=== PATIENT | female | born 1995 | race Caucasian/White ===

== ENCOUNTER 2020-10-05 17:45 | Emergency (ER) | payer SELFPAY ==
[~2020-10-05] VITALS: Ht 172.7 cm; Wt 71.8 kg
[2020-10-05] MEDS ORDERED: diphenhydrAMINE 50 mg/ml inj IV ONE (18:45)
[2020-10-05] MEDS ORDERED: metoclopramide 5 mg/ml inj IV ONE (18:45)
[2020-10-05] MEDS ORDERED: normal saline 1000ML IV soln IVB ONE ×3 (18:45→20:10)
[2020-10-05] MEDS ORDERED: ketorolac trometh. 30mg/ml inj. IV ONE (18:55)
[2020-10-05 19:05] LABS: URINE HCG NEGATIVE (NEG)
[2020-10-05 19:20] LABS: COLOR,URINE YELLOW (Yellow); GLUCOSE, URINE NEGATIVE (Neg); KETONES,URINE >=80 mg/dl (Neg); LEUKOCYTE ESTERASE ,URINE NEGATIVE (Neg); NITRITES, URINE NEGATIVE (Neg); OCCULT BLOOD,URINE NEGATIVE (Neg); PROTEIN,URINE TRACE mg/dl (Neg); UROBILINOGEN,URINE 0.2 E.U/dL (0.2-1.0)
[2020-10-05 19:22] LABS: HEMOGLOBIN 13.3 g/dl (12.0-16.0)
[2020-10-05 19:23] LABS: BASOPHILS % (AUTO) 0.2 % (0-1); EOSINOPHILS % (AUTO) 0 % (0-6); HEMATOCRIT 39.5 % (35.0-45.0); LYMPHOCYTES # (AUTO) 0.8 X10'3 (1.1-4.8); LYMPHOCYTES % (AUTO) 5.8 % (21-51); MEAN CORPUSCULAR HEMOGLOBIN 30.5 PG (27.0-31.0); MEAN CORPUSCULAR HGB CONC 33.8 g/dL (33.0-36.5); MEAN CORPUSCULAR VOLUME 90.2 FL (78-98); MEAN PLATELET VOLUME 8.2 FL (7.4-10.4); MONOCYTES # (AUTO) 0.4 X10'3 (0-0.9); NEUTROPHILS # (AUTO) 13.1 X10'3 (1.8-7.7); PLATELET COUNT 272 X10'3 (140-440); RED BLOOD COUNT 4.38 X10'6 (4.20-5.60); RED CELL DISTRIBUTION WIDTH 13.3 % (11.5-14.5); WHITE BLOOD COUNT 14.4 X10'3 (4.5-11.0)
[2020-10-05 19:26] LABS: UA COLLECTION TYPE VOIDED
[2020-10-05 19:27] LABS: CLARITY,URINE SLIGHTLY CLOUDY (Clear)
[2020-10-05 19:28] LABS: BACTERIA,URINE FEW /HPF (Neg); MUCUS STRANDS MANY /LPF (Neg); RBC,URINE NONE SEEN /HPF (0-2); SQUAMOUS EPITHELIAL CELL,UR FEW /LPF (FEW); WBC,URINE 0-4 /HPF (0-4)
[2020-10-05 19:35] LABS: ALANINE AMINOTRANSFERASE 19 U/L (12-78); ALBUMIN 4.3 G/DL (3.4-5.0); ALBUMIN/GLOBULIN RATIO 1.2 (1.1-1.5); ALKALINE PHOSPHATASE 64 IU/L (46-116); ANION GAP 16 (8-16); ASPARTATE AMINO TRANSFERASE 9 U/L (10-37); BILIRUBIN,TOTAL 1.2 MG/DL (0.1-1.0); BLOOD UREA NITROGEN 11 MG/DL (7-18); BUN/CREATININE RATIO 12.2 (6.6-38.0); CALCIUM 9.3 MG/DL (8.5-10.1); CHLORIDE 103 MMOL/L (99-107); GLUCOSE 112 MG/DL (70-104); LIPASE 53 U/L (73-393); POTASSIUM 3.5 MMOL/L (3.5-5.1); SODIUM 138 MMOL/L (135-145); TOTAL CARBON DIOXIDE 18.7 MMOL/L (24-32); eGFR 78 ML/MIN
[2020-10-05] MEDS ORDERED: ONDA4TAB12 PO (21:00)
[2020-10-05] MEDS ORDERED: PROM25SU9 RC (21:00)
--- NOTE | 2020-10-05 21:05 | NUR ---
DR BECKER TALKING WITH PT AND MOTHER ABOUT PLAN OF CARE AND DC INSRUCTIONS AND LABS.
[2020-10-05] MEDS ORDERED: ondansetron/PF 4mg/2ml inj IV ONE (21:20)
[2020-10-05 21:40] VITALS: BP 118/71
[2020-10-06] MEDS ORDERED: POTA20TA19 PO (19:16)
== END 2020-10-05 21:57 | disposition home or self-care (01) ==
LOC: EDSEX 17:47 → ER 17:47
DX: R11.2 Nausea with vomiting, unspecified (principal); R07.89 Other chest pain; R06.02 Shortness of breath; F12.90 Cannabis use, unspecified, uncomplicated; Z88.1 Allergy status to other antibiotic agents; Z79.899 Other long term (current) drug therapy
CPT/HCPCS: 36415; 71045; 80053; 81001; 81025; 83690; 85025; 93005; 96374; 96375; 99285; J1200; J1885; J2405; J2765; J7030

== ENCOUNTER 2020-10-06 13:41 | Emergency (ER) | payer SELFPAY ==
[~2020-10-06] VITALS: Ht 172.7 cm; Wt 73.3 kg
[~2020-10-06 13:41] MED LIST: ONDA4TAB12 PO; PROM25SU9 RC
--- NOTE | 2020-10-06 16:19 | NUR ---
PT TO ROOM, ASSUMED CARE
[2020-10-06] MEDS ORDERED: LIDOcaine Viscous 15ml cup MM ONE (17:05)
[2020-10-06] MEDS ORDERED: ondansetron/PF 4mg/2ml inj IV ONE (17:05)
[2020-10-06] MEDS ORDERED: normal saline 1000ML IV soln IVB ONE ×2 (17:05→19:15)
[2020-10-06] MEDS ORDERED: haloperidol lactate 5mg/ml inj IM ONE (17:05)
[2020-10-06] MEDS ORDERED: mag hydrox/Alum hydrox/simeth 30ml oral suspension PO ONE (17:05)
[2020-10-06] MEDS ORDERED: diphenhydrAMINE 50 mg/ml inj IV ONE (17:05)
[2020-10-06] MEDS ORDERED: pantoprazole 40 MG vial IV ONE (17:05)
[2020-10-06 17:44] LABS: BASOPHILS % (AUTO) 0.3 % (0-1); EOSINOPHILS % (AUTO) 0 % (0-6); HEMATOCRIT 38.5 % (35.0-45.0); HEMOGLOBIN 13.3 g/dl (12.0-16.0); LYMPHOCYTES # (AUTO) 1.1 X10'3 (1.1-4.8); LYMPHOCYTES % (AUTO) 8.5 % (21-51); MEAN CORPUSCULAR HEMOGLOBIN 31.5 PG (27.0-31.0); MEAN CORPUSCULAR HGB CONC 34.5 g/dL (33.0-36.5); MEAN CORPUSCULAR VOLUME 91.2 FL (78-98); MEAN PLATELET VOLUME 9.4 FL (7.4-10.4); MONOCYTES # (AUTO) 0.4 X10'3 (0-0.9); MONOCYTES % (AUTO) 2.8 % (2-12); NEUTROPHILS # (AUTO) 11.1 X10'3 (1.8-7.7); NEUTROPHILS % (AUTO) 88.4 % (42-75); PLATELET COUNT 218 X10'3 (140-440); RED BLOOD COUNT 4.22 X10'6 (4.20-5.60); RED CELL DISTRIBUTION WIDTH 13.9 % (11.5-14.5); WHITE BLOOD COUNT 12.5 X10'3 (4.5-11.0)
[2020-10-06 17:58] LABS: ALANINE AMINOTRANSFERASE 17 U/L (12-78); ALBUMIN 4.1 G/DL (3.4-5.0); ALBUMIN/GLOBULIN RATIO 1.2 (1.1-1.5); ALKALINE PHOSPHATASE 60 IU/L (46-116); ANION GAP 15 (8-16); ASPARTATE AMINO TRANSFERASE 9 U/L (10-37); BLOOD UREA NITROGEN 13 MG/DL (7-18); BUN/CREATININE RATIO 14.1 (6.6-38.0); CALCIUM 8.9 MG/DL (8.5-10.1); CHLORIDE 106 MMOL/L (99-107); CREATININE 0.92 MG/DL (0.40-0.90); GLUCOSE 96 MG/DL (70-104); LIPASE 81 U/L (73-393); POTASSIUM 3.3 MMOL/L (3.5-5.1); SODIUM 141 MMOL/L (135-145); TOTAL CARBON DIOXIDE 19.8 MMOL/L (24-32); TOTAL PROTEIN 7.6 G/DL (6.4-8.2); eGFR 76 ML/MIN
[2020-10-06] MEDS ORDERED: POTASSIUM BICARB 20meq eff tab 20 MEQ TABLET.EFF PO ONE (18:10)
[2020-10-06 18:23] LABS: URINE HCG NEGATIVE (NEG)
[2020-10-06 18:24] LABS: CLARITY,URINE CLEAR (Clear); COLOR,URINE YELLOW (Yellow); GLUCOSE, URINE NEGATIVE (Neg); KETONES,URINE >=80 mg/dl (Neg); LEUKOCYTE ESTERASE ,URINE NEGATIVE (Neg); NITRITES, URINE NEGATIVE (Neg); OCCULT BLOOD,URINE NEGATIVE (Neg); PROTEIN,URINE NEGATIVE (Neg); UROBILINOGEN,URINE 0.2 E.U/dL (0.2-1.0)
[2020-10-06 18:35] LABS: UA COLLECTION TYPE NON-SPECIFIED
[2020-10-06] MEDS ORDERED: POTA20TA19 PO (19:16)
[2020-10-06 19:54] VITALS: BP 110/74
== END 2020-10-06 19:56 | disposition home or self-care (01) ==
LOC: ER 13:42
DX: R11.2 Nausea with vomiting, unspecified (principal); R07.89 Other chest pain; F12.90 Cannabis use, unspecified, uncomplicated; Z88.1 Allergy status to other antibiotic agents; Z79.899 Other long term (current) drug therapy
CPT/HCPCS: 36415; 80053; 81003; 81025; 83690; 85025; 93005; 96361; 96372; 96374; 96375; 99285; C9113; J1200; J1630; J2405; J7030

== ENCOUNTER 2020-10-10 18:57 | Inpatient (IN) | payer BC ==
[~2020-10-10] VITALS: Ht 172.7 cm; Wt 68.2 kg
[~2020-10-10 18:57] MED LIST changes: +POTA20TA19 PO
[2020-10-10 19:45] LABS: ALANINE AMINOTRANSFERASE 16 U/L (12-78); ALBUMIN 4.3 G/DL (3.4-5.0); ALBUMIN/GLOBULIN RATIO 1.3 (1.1-1.5); ALKALINE PHOSPHATASE 60 IU/L (46-116); ANION GAP 19 (8-16); ASPARTATE AMINO TRANSFERASE 6 U/L (10-37); BILIRUBIN,TOTAL 1.1 MG/DL (0.1-1.0); BLOOD UREA NITROGEN 10 MG/DL (7-18); BUN/CREATININE RATIO 11.8 (6.6-38.0); CHLORIDE 101 MMOL/L (99-107); CREATININE 0.85 MG/DL (0.40-0.90); GLUCOSE 79 MG/DL (70-104); LIPASE 81 U/L (73-393); POTASSIUM 3.8 MMOL/L (3.5-5.1); SODIUM 139 MMOL/L (135-145); TOTAL CARBON DIOXIDE 18.8 MMOL/L (24-32); TOTAL PROTEIN 7.7 G/DL (6.4-8.2); eGFR 83 ML/MIN
[2020-10-10 19:46] LABS: BASOPHILS # (AUTO) 0.2 X10'3 (0-0.2); EOSINOPHILS % (AUTO) 0.5 % (0-6); HEMATOCRIT 39.5 % (35.0-45.0); HEMOGLOBIN 13.2 g/dl (12.0-16.0); LYMPHOCYTES # (AUTO) 1.5 X10'3 (1.1-4.8); LYMPHOCYTES % (AUTO) 15.2 % (21-51); MEAN CORPUSCULAR HEMOGLOBIN 30.5 PG (27.0-31.0); MEAN CORPUSCULAR HGB CONC 33.5 g/dL (33.0-36.5); MEAN CORPUSCULAR VOLUME 91.1 FL (78-98); MONOCYTES # (AUTO) 0.4 X10'3 (0-0.9); MONOCYTES % (AUTO) 3.8 % (2-12); NEUTROPHILS # (AUTO) 7.9 X10'3 (1.8-7.7); NEUTROPHILS % (AUTO) 78.5 % (42-75); PLATELET COUNT 238 X10'3 (140-440); RED BLOOD COUNT 4.33 X10'6 (4.20-5.60); RED CELL DISTRIBUTION WIDTH 13.6 % (11.5-14.5); WHITE BLOOD COUNT 10.1 X10'3 (4.5-11.0)
[2020-10-10] MEDS ORDERED: temazepam 15mg capsule PO PRN (21:00)
[2020-10-10 21:11] LABS: URINE HCG NEGATIVE (NEG)
[2020-10-10 21:26] LABS: CLARITY,URINE CLEAR (Clear); COLOR,URINE YELLOW (Yellow); GLUCOSE, URINE NEGATIVE (Neg); KETONES,URINE >=80 mg/dl (Neg); LEUKOCYTE ESTERASE ,URINE NEGATIVE (Neg); NITRITES, URINE NEGATIVE (Neg); OCCULT BLOOD,URINE NEGATIVE (Neg); PROTEIN,URINE TRACE mg/dl (Neg); UROBILINOGEN,URINE 0.2 E.U/dL (0.2-1.0)
[2020-10-10 21:27] LABS: ETHANOL < 0.010 GM/DL (0.0-0.010)
[2020-10-10 21:28] LABS: UA COLLECTION TYPE CLN CATCH MIDSTREAM
[2020-10-10 21:42] LABS: WBC,URINE 0-4 /HPF (0-4)
[2020-10-10 21:43] LABS: BACTERIA,URINE 1+ /HPF (Neg); RBC,URINE NONE SEEN /HPF (0-2); SQUAMOUS EPITHELIAL CELL,UR FEW /LPF (FEW)
[2020-10-10 21:47] LABS: URINE AMPHETAMINE SCREEN NEGATIVE (Neg); URINE BARBITUATE SCREEN NEGATIVE (Neg); URINE BENZODIAZEPINES SCREEN NEGATIVE (Neg); URINE CANNABINOID SCREEN POSITIVE (Neg); URINE COCAINE SCREEN NEGATIVE (Neg); URINE METHADONE SCREEN NEGATIVE (Neg); URINE OPIATE SCREEN NEGATIVE (Neg); URINE PHENCYCLIDINE SCREEN NEGATIVE (Neg)
[2020-10-10] MEDS ORDERED: haloperidol lactate 5mg/ml inj IM ONE (22:20)
[2020-10-10] MEDS ORDERED: LIDOcaine Viscous 15ml cup MM ONE ×2 (22:20→22:25)
[2020-10-10] MEDS ORDERED: mag hydrox/Alum hydrox/simeth 30ml oral suspension PO ONE ×2 (22:20→22:25)
[2020-10-10] MEDS ORDERED: LORazepam 2 mg/ml vial IV ONE (22:25)
[2020-10-10] MEDS ORDERED: pantoprazole 40 MG vial IV ONE (22:25)
[2020-10-10] MEDS ORDERED: SUCR1ORA12 PO (22:29)
[2020-10-10] MEDS ORDERED: sucralfate 1gm/10ml UD suspension PO SCH (22:30)
[2020-10-10] MEDS ORDERED: sucralfate 1gm/10ml UD suspension PO ONE (22:30)
[2020-10-10] MEDS ORDERED: PANT20TA18 PO (22:47)
[2020-10-10] MEDS ORDERED: ONDA4TAB6 PO (22:47)
[2020-10-10] MEDS ORDERED: mag hydrox/Alum hydrox/simeth 30ml oral suspension PO PRN (23:25)
[2020-10-10] MEDS ORDERED: potassium Cl 40MEQ/1/2NS 520ml 520 ML IV PRN ×2 (23:25)
[2020-10-10] MEDS ORDERED: acetaminophen 325mg tablet PO PRN ×2 (23:25)
[2020-10-10] MEDS ORDERED: magnesium 4gm in 100ml NS 100 ML IV PRN (23:25)
[2020-10-10] MEDS ORDERED: magnesium 2GM in 50ml NS 50 ML IV PRN (23:25)
[2020-10-10] MEDS ORDERED: HYDROcodone/acetaminophen 10/325mg tab PO PRN (23:25)
[2020-10-10] MEDS ORDERED: magnesium Cl slow-release 64mg tablet PO PRN (23:25)
[2020-10-10] MEDS ORDERED: potassium Cl 20 mEq SR tablet PO PRN ×2 (23:25)
[2020-10-10] MEDS ORDERED: HYDROcodone/acetaminophen 5mg/325mg tablet PO PRN (23:25)
[2020-10-10] MEDS ORDERED: morphine 2 MG/ML inj. syringe IV PRN ×2 (23:25)
[2020-10-10] MEDS ORDERED: magnesium hydroxide 30ml (MOM) UD suspension PO PRN (23:25)
[2020-10-10] MEDS ORDERED: ondansetron/PF 4mg/2ml inj IV PRN (23:25)
[2020-10-10 23:45] LABS: HEMOGLOBIN A1C 5.5 % (4.5-6.2)
[2020-10-11] VITALS (9 sets, daily range): BP systolic 119–146; BP diastolic 66–87
[2020-10-11] MEDS: normal saline 1000ml 1,000 ML IV SCH ×3 (01:05→13:00)
[2020-10-11] MEDS ORDERED: DIPH25CA83 PO (06:08)
[2020-10-11] MEDS ORDERED: ONDA4TAB6 PO (06:45)
[2020-10-11] MEDS ORDERED: ondansetron 4mg rapidly disintigrating tab PO PRN (06:45)
--- NOTE | 2020-10-11 07:00 | NUR ---
Patient in room [facility] 4014. I have received report from Colin ORDONEZ and had the opportunity to ask questions and assume patient care.
[2020-10-11] MEDS: heparin, porcine 5000 units/ml vial SQ SCH ×2 (07:43→20:14)
[2020-10-11] MEDS: pantoprazole 40 MG vial IV SCH ×2 (07:50→20:13)
[2020-10-11] MEDS: K and/or MAG REPLACEMENT MC SCH ×2 (08:00→20:00)
[2020-10-11] MEDS ORDERED: non-formulary drug (Pantoprazole Sodium (Protonix) 1 TAB) PO SCH (08:00)
[2020-10-11 08:22] LABS: BASOPHILS # (AUTO) 0.1 X10'3 (0-0.2); BASOPHILS % (AUTO) 0.6 % (0-1); EOSINOPHILS % (AUTO) 0.4 % (0-6); HEMATOCRIT 37.1 % (35.0-45.0); HEMOGLOBIN 12.2 g/dl (12.0-16.0); LYMPHOCYTES # (AUTO) 1.7 X10'3 (1.1-4.8); LYMPHOCYTES % (AUTO) 19.4 % (21-51); MEAN CORPUSCULAR HEMOGLOBIN 31.1 PG (27.0-31.0); MEAN CORPUSCULAR VOLUME 94.1 FL (78-98); MEAN PLATELET VOLUME 8.7 FL (7.4-10.4); MONOCYTES # (AUTO) 0.6 X10'3 (0-0.9); MONOCYTES % (AUTO) 6.6 % (2-12); NEUTROPHILS # (AUTO) 6.4 X10'3 (1.8-7.7); PLATELET COUNT 186 X10'3 (140-440); RED BLOOD COUNT 3.94 X10'6 (4.20-5.60); RED CELL DISTRIBUTION WIDTH 13.6 % (11.5-14.5); WHITE BLOOD COUNT 8.7 X10'3 (4.5-11.0)
[2020-10-11 08:43] LABS: ALANINE AMINOTRANSFERASE 19 U/L (12-78); ALBUMIN 3.4 G/DL (3.4-5.0); ALKALINE PHOSPHATASE 50 IU/L (46-116); ANION GAP 15 (8-16); ASPARTATE AMINO TRANSFERASE 10 U/L (10-37); BILIRUBIN,TOTAL 0.7 MG/DL (0.1-1.0); BLOOD UREA NITROGEN 7 MG/DL (7-18); BUN/CREATININE RATIO 9.9 (6.6-38.0); CALCIUM 8.1 MG/DL (8.5-10.1); CHLORIDE 105 MMOL/L (99-107); CREATININE 0.71 MG/DL (0.40-0.90); GLUCOSE 73 MG/DL (70-104); MAGNESIUM 1.9 MG/DL (1.5-2.4); POTASSIUM 3.6 MMOL/L (3.5-5.1); SODIUM 139 MMOL/L (135-145); TOTAL CARBON DIOXIDE 19.3 MMOL/L (24-32); TOTAL PROTEIN 6.7 G/DL (6.4-8.2); eGFR > 90 ML/MIN
[2020-10-11] MEDS: proCHLORperazine 10 MG/2 ml inj IV PRN ×2 (12:54→20:14)
[2020-10-11] MEDS ORDERED: fentaNYL/PF 50MCG/1 ML 2ML syringe ONE (13:52)
[2020-10-11] MEDS ORDERED: MIDAZolam 1 MG/ML 5ML VIAL ONE (13:52)
[2020-10-11] MEDS ORDERED: LIDOcaine Viscous 15ml cup ONE (13:52)
--- NOTE | 2020-10-11 16:30 | NUR ---
PAGER ID: [phone] MESSAGE: Lewis Faith [phone] re: Ida Weldon Patient is back from EGD, biopsy for H.Pylori, small hiatal hernia, and recommended clears. Thanks
--- NOTE | 2020-10-11 18:27 | NUR ---
Problems reprioritized. Patient report given, questions answered & plan of care reviewed with Bernie ORDONEZ.
--- NOTE | 2020-10-11 18:31 | NUR ---
Gave report to Hillary
--- NOTE | 2020-10-11 18:35 | NUR ---
Patient in room [facility] 4014. I have received report from SULAIMAN ORDONEZ and had the opportunity to ask questions and assume patient care. Addendum: 10/11/20 at 1835 by Hillary Yancey RN Amended: Links added.
--- NOTE | 2020-10-11 18:40 | NUR ---
pt's family in the room with her. no complaints or s&s of distress at this time.
--- NOTE | 2020-10-11 19:10 | NUR ---
pt/s girlfriend in to see her and left shortly after pt's medications were given and teaching done on plan of care and questins answered regarding what if biosy for hpylori is positive. teaching regarding that if positive will address it and she can express her amoxicillin abx allergy with him. reasured her he would find what is best for her if treatment needed and told her she is on protonix which is one of the medications that is given as a treatment.
--- NOTE | 2020-10-11 23:20 | NUR ---
resting without s&s of distress.
[2020-10-12] MEDS: normal saline 1000ml 1,000 ML IV SCH ×3 (00:37→23:43)
[2020-10-12 02:30] VITALS: BP 112/65
[2020-10-12 05:55] LABS: BASOPHILS # (AUTO) 0.1 X10'3 (0-0.2); BASOPHILS % (AUTO) 0.9 % (0-1); EOSINOPHILS # (AUTO) 0.1 X10'3 (0-0.9); EOSINOPHILS % (AUTO) 1.1 % (0-6); HEMATOCRIT 33.9 % (35.0-45.0); HEMOGLOBIN 11.5 g/dl (12.0-16.0); LYMPHOCYTES # (AUTO) 2.3 X10'3 (1.1-4.8); LYMPHOCYTES % (AUTO) 29.6 % (21-51); MEAN CORPUSCULAR VOLUME 91.3 FL (78-98); MEAN PLATELET VOLUME 8.4 FL (7.4-10.4); MONOCYTES # (AUTO) 0.5 X10'3 (0-0.9); MONOCYTES % (AUTO) 6.2 % (2-12); NEUTROPHILS # (AUTO) 4.8 X10'3 (1.8-7.7); NEUTROPHILS % (AUTO) 62.2 % (42-75); PLATELET COUNT 179 X10'3 (140-440); RED BLOOD COUNT 3.71 X10'6 (4.20-5.60); RED CELL DISTRIBUTION WIDTH 13.4 % (11.5-14.5); WHITE BLOOD COUNT 7.7 X10'3 (4.5-11.0)
[2020-10-12 06:00] VITALS: BP 118/68
[2020-10-12 06:07] LABS: ALANINE AMINOTRANSFERASE 9 U/L (12-78); ALBUMIN 3.1 G/DL (3.4-5.0); ALBUMIN/GLOBULIN RATIO 1.1 (1.1-1.5); ALKALINE PHOSPHATASE 47 IU/L (46-116); ANION GAP 15 (8-16); ASPARTATE AMINO TRANSFERASE 8 U/L (10-37); BILIRUBIN,TOTAL 0.8 MG/DL (0.1-1.0); BLOOD UREA NITROGEN 5 MG/DL (7-18); CALCIUM 7.9 MG/DL (8.5-10.1); CHLORIDE 103 MMOL/L (99-107); CREATININE 0.71 MG/DL (0.40-0.90); GLUCOSE 64 MG/DL (70-104); MAGNESIUM 1.5 MG/DL (1.5-2.4); POTASSIUM 3.6 MMOL/L (3.5-5.1); SODIUM 137 MMOL/L (135-145); TOTAL CARBON DIOXIDE 18.6 MMOL/L (24-32); eGFR > 90 ML/MIN
--- NOTE | 2020-10-12 06:50 | NUR ---
Patient in room [facility] 4014. I have received report from Hillary ORDONEZ and had the opportunity to ask questions and assume patient care.
--- NOTE | 2020-10-12 06:51 | NUR ---
Problems reprioritized. Patient report given, questions answered & plan of care reviewed with Kristy Machado. Addendum: 10/12/20 at 0651 by Hillary Yancey RN Amended: Links added.
[2020-10-12] MEDS: K and/or MAG REPLACEMENT MC SCH ×2 (08:00→19:31)
[2020-10-12] MEDS: heparin, porcine 5000 units/ml vial SQ SCH ×2 (08:00→19:34)
[2020-10-12] MEDS: pantoprazole 40 MG vial IV SCH ×2 (09:22→19:34)
[2020-10-12 10:00] VITALS: BP 120/59
--- NOTE | 2020-10-12 10:21 | NUR ---
Per [facility] staff, they do not have the special medicine needed to get the gastric emptying study done today so it will need to schedule for tomorrow instead. Dr. Lawrence was notified about this as well as patient and her mom at bedside. Patient was instructed to be NPO after midnight to prepare for the procedure tomorrow.
--- NOTE | 2020-10-12 10:55 | NUR ---
Malnutrition consult: Pt reports wt loss with decreased appetite per malnutrition risk screen with RN. No recent scaled wt hx in EMR. Pt on a clear liquid diet documented with 100% PO intake first meal. Pt with no documented decrease in muscle strength or edema. Pt appears well developed well nourished per ED report. Likely patient with some fluctuations in appetite/PO intake secondary to N/V [employer] however pt currently lacks a minimum of two criteria for malnutrition. Will continue to follow. Addendum: 10/12/20 at [address] Amended: Links added.
--- NOTE | 2020-10-12 12:55 | NUR ---
Patient's peripheral IV catheter on the left AC got infiltrated, discontinued the peripheral IV catheter, tip intact. I applied warm blanket on patient's right forearm to see if I can pop some veins as I could not see anything on both arms. There was a vein on the right hand that I am seeing but was not very sure if I can make it one attempt. Patient requested someone else to try inserting a new peripheral IV catheter into her vein. I discussed this with charge nurse Shari, she said she will take a look at patient's veins.
[2020-10-12 18:00] VITALS: BP 121/59
--- NOTE | 2020-10-12 18:38 | NUR ---
Problems reprioritized. Patient report given, questions answered & plan of care reviewed with Christina ORDONEZ.
--- NOTE | 2020-10-12 18:40 | NUR ---
Patient in room [facility] 4014. I have received report from MERY Wagner and had the opportunity to ask questions and assume patient care.
[2020-10-12 22:00] VITALS: BP 129/77
--- NOTE | 2020-10-13 06:06 | NUR ---
Problems reprioritized. Patient report given, questions answered & plan of care reviewed with MERY Pimentel.
--- NOTE | 2020-10-13 06:15 | NUR ---
RECEIVED REPORT FROM MERY ALLEN
[2020-10-13] MEDS: pantoprazole 40 MG vial IV SCH (07:11)
[2020-10-13] MEDS: heparin, porcine 5000 units/ml vial SQ SCH (07:16)
[2020-10-13 07:18] LABS: BASOPHILS # (AUTO) 0.1 X10'3 (0-0.2); BASOPHILS % (AUTO) 0.7 % (0-1); EOSINOPHILS # (AUTO) 0.1 X10'3 (0-0.9); EOSINOPHILS % (AUTO) 1.7 % (0-6); HEMATOCRIT 34.5 % (35.0-45.0); HEMOGLOBIN 11.9 g/dl (12.0-16.0); LYMPHOCYTES # (AUTO) 2.2 X10'3 (1.1-4.8); LYMPHOCYTES % (AUTO) 26.6 % (21-51); MEAN CORPUSCULAR HEMOGLOBIN 31.2 PG (27.0-31.0); MEAN CORPUSCULAR HGB CONC 34.4 g/dL (33.0-36.5); MEAN CORPUSCULAR VOLUME 90.8 FL (78-98); MEAN PLATELET VOLUME 8.8 FL (7.4-10.4); MONOCYTES # (AUTO) 0.6 X10'3 (0-0.9); MONOCYTES % (AUTO) 7.1 % (2-12); NEUTROPHILS # (AUTO) 5.2 X10'3 (1.8-7.7); NEUTROPHILS % (AUTO) 63.9 % (42-75); PLATELET COUNT 180 X10'3 (140-440); RED CELL DISTRIBUTION WIDTH 13.1 % (11.5-14.5); WHITE BLOOD COUNT 8.2 X10'3 (4.5-11.0)
[2020-10-13 07:39] LABS: ALANINE AMINOTRANSFERASE 8 U/L (12-78); ALKALINE PHOSPHATASE 47 IU/L (46-116); ANION GAP 13 (8-16); ASPARTATE AMINO TRANSFERASE 13 U/L (10-37); BILIRUBIN,TOTAL 0.9 MG/DL (0.1-1.0); BLOOD UREA NITROGEN 5 MG/DL (7-18); BUN/CREATININE RATIO 7.8 (6.6-38.0); CALCIUM 7.9 MG/DL (8.5-10.1); CHLORIDE 105 MMOL/L (99-107); CREATININE 0.64 MG/DL (0.40-0.90); GLUCOSE 74 MG/DL (70-104); MAGNESIUM 1.4 MG/DL (1.5-2.4); POTASSIUM 3.3 MMOL/L (3.5-5.1); SODIUM 140 MMOL/L (135-145); TOTAL CARBON DIOXIDE 21.9 MMOL/L (24-32); TOTAL PROTEIN 5.9 G/DL (6.4-8.2); eGFR > 90 ML/MIN
[2020-10-13 07:59] VITALS: BP 164/87
[2020-10-13] MEDS: K and/or MAG REPLACEMENT MC SCH (08:00)
[2020-10-13 10:00] VITALS: BP 147/78
[2020-10-13] MEDS ORDERED: PANT-47 PO (12:33)
[2020-10-13] MEDS: normal saline 1000ml 1,000 ML IV SCH (13:00)
--- NOTE | 2020-10-13 14:31 | NUR ---
MERY TC: Pt pending discharge s/p EGD showing small hiatal hernia otherwise normal s/p gastric emptying study today pending results. Pt/family request diet education on current low fat diet order in EMR. Pt/family seen by RD for written/verbal gastroparesis diet ed w/ RD contact information provided. RD encouraged pt/family to f/u w/ PCP once gastric empyting studies results are obtained as pt may not need further dietary restrictions if results are normal. Noted cannabis use may also be cause per GI MD note and pending H. pylori results per hospitalist note. RD encouraged pt/family to contact dietitian's office if further questions/concerns. Addendum: 10/13/20 at [address] Amended: Links added.
--- NOTE | 2020-10-13 14:37 | NUR ---
PT D/C WITH INSTRUCTIONS, UNDERSTANDING OF INSTRUCTIONS AND W/ALL BELONGINGS WALKING OUT ACCOMPANIED BY NURSING STAFF AND FAM MEMBERS TO PRIVATE VEHICLE TO GO HOME AND F/U W/PCP
== END 2020-10-13 14:41 | disposition home or self-care (01) | DRG 392 ==
LOC: ER 18:58 → ED HOLD 23:23 → ORTHO 4S 10-11 07:25
PROVIDERS: ADMIT Internal Medicine; ATTEND Internal Medicine
PROC: 0DB68ZX Excision of Stomach, Via Natural or Artificial Opening Endoscopic, Diagnostic (ICD-10-PCS; 2020-10-11)
PROC: CD1YYZZ Planar Nuclear Medicine Imaging of Digestive System using Other Radionuclide (ICD-10-PCS; principal; 2020-10-13)
DX: R11.2 Nausea with vomiting, unspecified (principal); E87.2 Acidosis; F12.90 Cannabis use, unspecified, uncomplicated; F32.9 Major depressive disorder, single episode, unspecified; F41.0 Panic disorder [episodic paroxysmal anxiety]; F41.1 Generalized anxiety disorder; K44.9 Diaphragmatic hernia without obstruction or gangrene; Z88.1 Allergy status to other antibiotic agents
CPT/HCPCS: 36415; 43239; 76700; 78264; 80053; 80305; 80320; 81001; 81025; 83036; 83605; 83690; 83735; 85025; 87040; 87081; 87088; 93005; 96372; 99152; 99285; A4620; A9541; C9113; G0378; J0780; J1630; J1644; J2060; J2250; J2405; J3010; J7030; J7040